=== PATIENT | female | born 2000 | race Caucasian/White ===

== ENCOUNTER 2024-04-29 15:40 | Emergency (ER) | payer OTHER, SELFPAY ==
[2024-04-29 15:41] VITALS: BMI 46.9
[2024-04-29 15:42] VITALS: BP 164/96
[2024-04-29 16:14] LABS: Hematocrit 45.7 % (37.0-47.0); Hemoglobin 15.9 g/dL (12.0-16.0); Mean Corp Hgb Conc. 34.8 g/dL (33.0-37.0); Mean Corpuscular Hgb 28.3 pg (27.0-31.0); Mean Corpuscular Volume 81.5 fL (81.0-99.0); Mean Platelet Volume 10.6 fL (7.4-10.4); Platelet Count 114 10^3/uL (130-400); Red Blood Cell Count 5.61 10^6/uL (4.20-5.40); Red Cell Dist. Width 12.4 % (11.5-14.5); White Blood Cell Count 4.9 10^3/uL (4.8-10.8)
[2024-04-29 16:22] LABS: HCG, Serum Qualitative Screen Negative
[2024-04-29 16:24] LABS: COVID-19 Antigen Negative (Negative)
[2024-04-29 16:27] LABS: ALT (SGPT) 106 U/L (0-35); AST (SGOT) 169 U/L (14-36); Albumin 4.3 g/dl (3.5-5.0); Alkaline Phosphatase 156 U/L (38-126); Blood Urea Nitrogen 9 mg/dl (7-17); Calcium 8.9 mg/dl (8.4-10.2); Carbon Dioxide 29 mmol/L (22-30); Chloride 101 mmol/L (98-107); Glucose 93 mg/dl (70-99); Potassium 3.8 mmol/L (3.5-5.1); Sodium 135 mmol/L (135-145); Total Bilirubin 1.1 mg/dl (0.2-1.3); Total Protein 7.2 g/dl (6.3-8.2); eGFR > 60.00
[2024-04-29 16:37] LABS: Troponin I < 0.012 ng/ml
[2024-04-29 16:47] LABS: Absolute Neutrophils -Man Diff 2.4 10^3/uL (1.4-6.5); Atypical Lymphocytes 15 %; Band Neutrophils 0 % (0-3); Blasts 2 % (-); Eosinophils 2 % (0-6); Lymphocytes 25 % (20-51); Monocytes 7 % (2-9); Platelets Checked Yes; Segmented Neutrophils 49 % (42-75)
[2024-04-29 16:53] LABS: Normal RBC Morphology Yes; Total Cells Counted 100
[2024-04-29 17:11] VITALS: BP 156/90
--- NOTE | 2024-04-29 17:48 | ED.GENMED ---
Addendum entered and electronically signed by Alexus Rendon PA-C 05/01/24 11:36:
05/01/24: I was contacted by hematopathologist, Dr. Craig Hurtado regarding abnormal blood smear. 2% blasts were noted in peripheral blood smear along with some atypical findings given patient's age including 'some MDS like changes '. Did contact
patient to make aware of abnormal findings and recommended hematology/oncology follow-up outpatient. Spoke with Dr. Sarah Pierre heme-onc who will see him in office this Tuesday. Patient aware. Advised to return to ER with worsening symptoms.
Original Note:
History of Present Illness
<Alexus Rendon PA-C - Last Filed: 04/29/24 20:54>
General
Chief Complaint: Fever
Source: patient
Exam Limitations: none
Time Seen by Provider: 04/29/24 17:07
Nursing documentation reviewed up to this point in time: agreed with
History of Present Illness
History of Present Illness:
Patient is a 24-year-old female presenting to the emergency department with concern of intermittent fevers and elevated heart rate since Tuesday. Patient states that he has had fevers up to 102 F. Patient also notes a pain in his left lower chest
with occasional radiation up into his mid chest. In addition�he notices some intermittent lightheadedness, headache. Patient denies any abdominal pain although did have an episode of nausea and vomiting on Tuesday. No diarrhea.
Patient denies any known recent bug bites or rashes. No recent travel or recent surgeries. No known sick contacts.
Patient was born female. 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 He does take testosterone injections weekly for many years now.
Review of Systems
<Alexus Rendon PA-C - Last Filed: 04/29/24 20:54>
Review of Systems
Allergies reviewed?: Yes
All Other Systems: ROS reviewed and negative except as documented in HPI and ROS
Phy Exam
<Alexus Rendon PA-C - Last Filed: 04/29/24 20:54>
Physical Exam
Physical Exam:
Vitals: Tachycardic, hypertensive, tachypneic.
General: Patient is well appearing, no acute distress
Skin: Warm and dry, no rashes or lesions
Head: Normocephalic, atraumatic
Eyes: Sclera nonicteric. EOMs intact. No nystagmus.
Throat: Protecting airway
Neck: Normal ROM, no cervical spine tenderness, no meningismus
Cardiac: Tachycardic, normal rhythm, no murmurs.
Pulm: Normal respiratory effort, no wheezes, rales, rhonchi heard on exam.
Abdomen: Abdomen soft. Mild tenderness in right upper quadrant without any rebound tenderness or guarding.
Extremities: No evidence of cyanosis or edema. Great distal pulses
Neuro: AAOx3. CN II-XII intact. No focal neurologic deficits. Strength 5 out of 5 in upper and lower extremities. Sensation fully intact. Steady gait. Fluid speech
Psychiatric: Normal affect.
Course
<Aleuxs Rendon PA-C - Last Filed: 04/29/24 20:54>
Orders/Labs/Results
Orders:
Orders
04/29/24 15:48
Electrocardiogram (*1) Urgent
Reason for Study: Chest Pain
04/29/24 15:49
EKG- Treatment ONCE
Test Result ONCE
04/29/24 16:00
COVID-19 Antigen Urgent
Source: Nasal Swab
Complete Blood Count/With Diff Urgent
Comprehensive Metabolic Panel Urgent
HCG, Serum Qualitative Screen Urgent
Manual Differential Urgent
Troponin I Urgent
04/29/24 17:40
CT Chest Pe Study Urgent
Comment: on testosterone
Reason For Exam: CP, tachy
0.9% Sodium Chloride 1000 ml [Nss] 1,000 ml IV BOLUS
Acetaminophen [Tylenol] 650 mg PO NOW STA
Labetalol HCl [Trandate] 10 mg IV NOW STA
US Abdomen Complete/Upper Urgent
Comment:
Reason For Exam: RUQ pain, elevated LFTs
04/29/24 17:49
Lyme Progressive Urgent
Monotest Urgent
Abnormal Lab Results
04/29/24
16:00
RBC 5.61 H 10^6/uL
(4.20-5.40)
Plt Count 114 L 10^3/uL
(130-400)
MPV 10.6 H fL
(7.4-10.4)
Creatinine 1.1 H mg/dL
(0.6-1.0)
AST 169 H U/L
(14-36)
ALT 106 H U/L
(0-35)
Alkaline Phosphatase 156 H U/L
(38-126)
04/29/24 16:00
04/29/24 16:00
Vital Signs
Initial and Last Documented VS:
Initial Vital Signs
Temp Pulse Resp BP Pulse Ox
99.1 F 131 18 164/96 99
04/29/24 15:42 04/29/24 15:42 04/29/24 15:42 04/29/24 15:42 04/29/24 15:42
Last Documented Vital Signs
Temp Pulse Resp BP Pulse Ox
99.5 F 115 27 157/72 96
04/29/24 18:00 04/29/24 19:32 04/29/24 19:32 04/29/24 19:32 04/29/24 19:32
<Elroy Patel MD - Last Filed: 04/30/24 01:58>
Orders/Labs/Results
Orders:
Orders
04/29/24 15:48
Electrocardiogram (*1) Urgent
Reason for Study: Chest Pain
04/29/24 15:49
EKG- Treatment ONCE
Test Result ONCE
04/29/24 16:00
COVID-19 Antigen Urgent
Source: Nasal Swab
Complete Blood Count/With Diff Urgent
Comprehensive Metabolic Panel Urgent
HCG, Serum Qualitative Screen Urgent
Manual Differential Urgent
Troponin I Urgent
04/29/24 17:40
CT Chest Pe Study Urgent
Comment: on testosterone
Reason For Exam: CP, tachy
0.9% Sodium Chloride 1000 ml [Nss] 1,000 ml IV BOLUS
Acetaminophen [Tylenol] 650 mg PO NOW STA
Labetalol HCl [Trandate] 10 mg IV NOW STA
US Abdomen Complete/Upper Urgent
Comment:
Reason For Exam: RUQ pain, elevated LFTs
04/29/24 17:49
Lyme Progressive Urgent
Monotest Urgent
Abnormal Lab Results
04/29/24
16:00
RBC 5.61 H 10^6/uL
(4.20-5.40)
Plt Count 114 L 10^3/uL
(130-400)
MPV 10.6 H fL
(7.4-10.4)
Creatinine 1.1 H mg/dL
(0.6-1.0)
AST 169 H U/L
(14-36)
ALT 106 H U/L
(0-35)
Alkaline Phosphatase 156 H U/L
(38-126)
04/29/24 16:00
04/29/24 16:00
Vital Signs
Initial and Last Documented VS:
Initial Vital Signs
Temp Pulse Resp BP Pulse Ox
99.1 F 131 18 164/96 99
04/29/24 15:42 04/29/24 15:42 04/29/24 15:42 04/29/24 15:42 04/29/24 15:42
Last Documented Vital Signs
Temp Pulse Resp BP Pulse Ox
99.5 F 115 27 157/72 96
04/29/24 18:00 04/29/24 19:32 04/29/24 19:32 04/29/24 19:32 04/29/24 19:32
<Alexus Rendon PA-C - Last Filed: 04/29/24 20:54>
MDM/Problems Addressed
Differential Diagnosis Includes:
Not limited to: Viral illness, dehydration, cardiac arrhythmia, pulmonary embolism, Lyme disease, mono
MDM/Problems Addressed:
24-year-old patient born female, identifies as a male presenting with a few days of intermittent fevers, chest pain, tachycardia. Patient is on testosterone injections weekly for many years. No other PE risk factors. No personal or family history
of blood clots. No sick contacts. No recent travel. No known bug bites or rashes patient hypertensive, tachycardic on arrival. Physical exam is as above. Patient is tachycardic although well-appearing. He appears in no apparent respiratory
distress. Lungs are clear bilaterally. Tachycardic with normal rhythm. No reproducible chest wall discomfort. No clinical evidence of DVT on exam. He does have some mild tenderness of right upper quadrant abdomen, although soft throughout. No
rashes. Did get patient up and walking and he has a steady gait. No focal neurologic deficits. Labs initiated in triage and noted. Thrombocytopenia noted of 114. Differential pending which will require pathologist review to be reported
tomorrow. Nonspecific transaminitis noted, as well. Troponin normal. Do not suspect ACS. Given patient's significant tachycardia and chest pain on home medical symptoms will obtain CTA chest to rule out pulmonary embolism. Will check ultrasound
of abdomen given elevated LFTs and mild right upper quadrant tenderness. Will add on monotest, Lyme. Will give fluids and Tylenol. Will monitor closely reassess.
[place] is negative. COVID is negative. Abdominal ultrasound with any acute abnormalities. CT chest shows no evidence of pulmonary embolism. Some nonspecific bilateral groundglass opacities. Patient did receive a liter of fluids and Tylenol. His
heart rate is still tachycardic although decreased to 115.
Workup here essentially negative. Symptoms most consistent with likely viral illness given thrombocytopenia, nonspecific transaminitis. Lyme is pending. Patient is not experience any symptoms related to tachycardia including palpitations,
dizziness, shortness of breath. Suspect likely related to viral illness, dehydration patient seen and discussed with attending physician. No indications for admission. Patient feels comfortable with discharge with close return precautions
supportive care at home. He will follow-up with his primary care provider this week for follow-up and vital sign check. Did recommend repeat lab work to trend both platelets and LFTs. Patient feels comfortable with this plan and will return if
worse. Patient seen with attending physician.
Chronic conditions affecting care:
N/A
Acute Exacerbation and/or Progression of Chronic Illness:
N/A
<Alexus Rendon PA-C - Last Filed: 04/29/24 20:54>
*Radiology
Radiology exam reviewed: radiology read reviewed (No evidence of PE)
*Pulse Oximetry
Patient hypoxic: no
*EKG
Interpreted by ED Provider?: Yes
EKG Intrepretation Date: 04/29/24
Interpretation: normal
Comparison EKG: no comparison EKG present
Heart Rate: 119
Rate: tachycardiac
Rhythm: sinus
[place]: normal axis
Interval: normal interval
QRS Pattern: normal QRS
Ischemia: no ischemia
*[employer] Risk [employer] Assurance Senior Manager Interpretation
Rate: tachycardiac
Interpretation: abnormal
Heart Rate: 116
Rhythm: sinus
*Critical Care Note
Total Time (30-74mins, 75-104mins- exclusive of procedures): Not Applicable
ED Attending Note
<Alexus Rendon PA-C - Last Filed: 04/29/24 20:54>
-
Portions of this chart may have been created with voice recognition software.� Occasional wrong word or��sound alike� substitutions may have occurred due to the inherent limitations of voice recognition software.
<Elroy Patel MD - Last Filed: 04/30/24 01:58>
ED Attending Note
Patient seen and examined by attending physician: Yes
ED Attending Note:
Patient presents to ED secondary to intermittent fever, chills, dizziness, headache, decreased appetite, along with increased heart rate and chest pain over the past 6 days. Denies sick contact. Denies recent travel or surgery. Denies back pain.
Denies leg pain or swelling. Patient has been receiving testosterone injection for the past 8 years. Denies dizziness. Denies rash. There is no family history of heart disease or blood clots.
Physical Exam
General: no apparent distress, not acutely ill
Neck: supple. no meningeal signs. normal psoterior pharynx
Heart: s1/s2 regular rate and rhythm, no murmur. equal radial pulses.
Lungs: no acute respiratory distress. clear bilaterally
Abdomen: normal bowel sounds. not tender. no CVAT
Neuro: alert and oriented. no focal neurological deficits
Skin: no rash
Psychiatric: well kept. interactive and cooperative
Extremities: no edema. no calf tenderness. negative homans. good distal pulses
Thrombocytopenia as well as mildly elevated LFTs noted on blood work. CT chest without any acute findings. Mild improvement in heart rate as well as blood pressure noted during observation. As patient does not have history of hypertension, but
currently with likely viral illness, which may be contributing to his hypertension, patient will be advised to keep a log of his blood pressure and follow-up with his primary care physician, along with repeat blood work. Patient expresses
understanding, at time of discharge
Discharge Plan
Departure
Patient Disposition: Home (Routine Discharge)
Date of Disposition: 04/29/24
Time of Disposition: 19:51
Patient with high blood pressure during this ER visit?: Yes
Condition: Good
Covid-19: Negative COVID-19
Discharge Problem:
Fever, Tachycardia
Instructions: Fever, Adult (DC), Viral Syndrome (DC), BLOOD PRESSURE
Referrals:
UNKNOWN - PT DOES,NOT KNOW [Family Provider] -
Activity Restrictions/Additional Instructions:
RETURN TO THE EMERGENCY DEPARTMENT WITH ANY HIGH FEVERS, CHEST PAIN, SHORTNESS OF BREATH, PERSISTENTLY ELEVATED HEART RATE, DIZZINESS/LIGHTHEADEDNESS, WORSENING IN CURRENT SYMPTOMS, OR ANY OTHER CONCERNS
-As discussed�your symptoms are possibly due to a virus. You should continue to stay well-hydrated. You can take Tylenol at home as needed for fever, headache. You should take it easy over the next 2 days and get plenty of rest.
-We did send a Lyme test while you are in the emergency department. We will contact you if this test is positive.
-As discussed�there were a few lab abnormalities noted in the emergency department. Your platelets were low. You did have some elevation in your liver function test. You should ensure that these lab values are repeated by your primary care doctor
in a few weeks to ensure they are trending in the right direction.
-Follow-up with your primary care provider in a few days for further evaluation/management to ensure that your symptoms are improving
Monitor your symptoms closely return to the emergency department with any acute worsening or new symptoms.
Interventions
Interventions:
*Risk Screen - Suicide Last Done: 04/29/24 15:42
*General Assessment Last Done: 04/29/24 15:42
*Neglect/Abuse Screening Last Done: 04/29/24 15:42
ED- Fall Risk Assessment Last Done: 04/29/24 17:06
*ED COVID-19 Vaccine History Last Done: 04/29/24 17:06
*Nursing Disposition Last Done: 04/29/24 19:44
ED- Neurological Assessment Last Done: 04/29/24 17:06
ED-Skin Assessment Last Done: 04/29/24 17:06
Discharge Date and Time
Discharge Date/Time: 04/29/24 19:56
Print Language: SINHALA
[2024-04-29] MEDS: TRANDATE 10 MG IV (17:52)
[2024-04-29] MEDS: NSS 1000 IV (17:52)
[2024-04-29] MEDS: TYLENOL 650 MG PO (17:53)
[2024-04-29 18:00] VITALS: BP 145/78
[2024-04-29 18:42] LABS: Monotest Negative (Negative)
[2024-04-29 19:22] VITALS: BP 196/84
[2024-04-29 19:32] VITALS: BP 157/72
[2024-04-30 14:56] LABS: Lyme Antibody Screen, EIA Equivocal (Negative)
[2024-05-03 17:16] LABS: Lyme Ab Western Blot IgG Negative (Negative); Lyme Ab Western Blot IgM Negative (Negative)
== END 2024-04-29 19:56 | disposition home or self-care (01) ==
LOC: EMR 15:40
PROVIDERS: Emergency Medicine; Physician Assistant; EMERGENCY PHYSICIAN Emergency Medicine
DX: R50.9 Fever, unspecified (principal); R00.0 Tachycardia, unspecified; D69.6 Thrombocytopenia, unspecified; Z90.13 Acquired absence of bilateral breasts and nipples
CPT/HCPCS: 99284; 96374; 96361; 71275; 76700; 80053; 84484; 84703; 85025; 86308; 86617; 86618; 87811; 93005; Q9967